=== PATIENT | female | born 1955 | race Caucasian/White ===

== ENCOUNTER 2016-10-31 08:18 | Inpatient (IN) | payer OTHER ==
[2016-10-31] VITALS (18 sets, daily range): BP systolic 88–189; BP diastolic 55–109
[~2016-10-31] VITALS: Ht 157.5 cm; Wt 112.8 kg
--- NOTE | ~2016-10-31 | EKG ---
[address] [address] ELECTROCARDIOGRAM REPORT Name: JESSICA MÉNDEZ Room #: 243- ADM IN M.R.#: [id number] Admission: 10/31/16 Attend Phys: Mickie Quintero MD Discharge: Date of : 57 Report #: [id number] THIS REPORT FOR: //name// [facility] ED Test Date: 2016-10-31 Test Time: 09:11:32 Pat Name: JESSICA MÉNDEZ Department: Room: [facility] Gender: F It Coordinator: BASSAM : 1955 Requested By: Verenice Trevino Order Number: [id number] MD: Deshawn Gr Measurements Intervals [place] Rate: 0 P: 0 [place]: QRS: 0 QRSD: T: QT: QTc: 0 Interpretive Statements All 12 leads are missing Compared to ECG 10/31/2016 08:36:21 Sinus rhythm no longer present Atrial premature complex(es) no longer present Electronically Signed On 10-31-2016 17:02:54 UNIVERSITY INTERN by Deshawn Gr [email or web address] <ELECTRONICALLY SIGNED> By: Deshawn Gr MD 10/31/16 1702 0911 0911 Deshawn Gr MD /ANN
--- NOTE | ~2016-10-31 | HC ---
[facility] [place] [address] CONSULTATION Name: JESSICA MÉNDEZ Room #: 243-P [facility] IN M.R.#: [id number] Admission: 10/31/16 Attend Phys: Mickie Quintero MD Discharge: Date of : 57 Report #: [id number] THIS REPORT FOR: //name// CC: Luisa Phillips Mickie Quintero PRIMARY PHYSICIAN: None. REFERRAL PHYSICIAN: and Mickie Quintero MD REASON FOR REFERRAL: Acute respiratory failure. HISTORY OF PRESENT ILLNESS: The patient is a 61-year-old female who was brought to the emergency room with dyspnea. The patient was found to be unresponsive and she was subsequently intubated. A pulmonary consultation was requested. The patient has multiple medical problems including history of respiratory failure felt to be related to chronic narcotics, COPD and sleep apnea. She was just hospitalized in February 2016, for similar presentation. She required intubation at that time. According to the nursing facility, the patient was found unresponsive this morning during the morning rounds. She was brought to the emergency room. Currently, she is intubated. She is now arousable, follows commands. Otherwise, history is limited as the patient is intubated. PAST MEDICAL HISTORY: As mentioned above including history of apparent COPD/asthma, chronic pain, on chronic narcotics; history of obesity with possible sleep apnea, history of insomnia, major depressive disorder, anxiety disorder, anemia, hypertension, gastroesophageal reflux disease, and diabetes mellitus type 2. PAST SURGICAL HISTORY: Unknown. ALLERGIES: Include ASPIRIN, CODEINE, IODINE and PENICILLIN, reactions not specified. MEDICATIONS: On admission were reviewed, this Include prednisone, oxycodone IR 15 mg q.6 hours p.r.n., Abilify, Xanax 0.5 mg p.o. t.i.d., supplements, Combivent 2 puffs p.r.n., Effexor 75 mg once a day, hydralazine, DuoNeb q.4 hours p.r.n., iron supplements, lisinopril, Norvasc, OxyContin 60 mg p.o. b.i.d., Prilosec, Provigil, senna, and Zoloft. FAMILY HISTORY: Unknown. [address] [address] CONSULTATION Name: JESSICA MÉNDEZ Room #: 243-P [facility] IN ..#: [id number] Admission: 10/31/16 Attend Phys: Mickie Quintero MD Discharge: Date of : 57 Report #: [id number] SOCIAL HISTORY: She resides at a nursing care facility. She has family including a sister who lives in town who looks after her. There is no history of tobacco or alcohol use. REVIEW OF SYSTEMS: Deferred as the patient is intubated. PHYSICAL EXAMINATION: GENERAL: She is now arousable, following commands. VITAL SIGNS: Pulse is 80, respiratory rate is 24, blood pressure 115/67 mmHg, and saturation 94%. HEENT: Normocephalic, atraumatic. She is orally intubated. NECK: Supple without any lymphadenopathy or thyromegaly. CHEST: Breath sounds are clear bilaterally without obvious wheezes or rales. CARDIOVASCULAR: Normal S1, S2. There are no murmurs or gallop. There is no JVD. There is no carotid bruit. Pulses are 2+/4+ bilaterally. ABDOMEN: Moderately obese. GENITOURINARY: Deferred. RECTAL: Deferred. EXTREMITIES: No cyanosis, clubbing, or edema. LABORATORY DATA: Portable chest x-ray post-intubation shows mild cardiomegaly, small lung volumes, mild vascular congestion, questionable right-sided infiltrates, question left lower lobe atelectasis, ET tube is approximately 2.5 cm above the sonia. Electrolytes: Sodium 138, potassium 4.9, chloride 98, CO2 is 34, BUN is 32, creatinine is 1.3. WBC 6900, hemoglobin is 12.8, platelets are normal. Arterial blood gas post-intubation revealed pH 7.28, pCO2 of 67, pO2 400 on FiO2 100%. IMPRESSION: 1. Acute hypercapnic hypoxic respiratory failure in this 61-year-old white female. This is her second episode in the last 6 months. She was felt to be unresponsive. She has chronic pain, requiring chronic narcotics. She has a history of asthma and chronic obstructive pulmonary disease with possible sleep related breathing disorder. Most likely etiology is likely related to hypoventilation, probably related to chronic narcotics. Again, as previously mentioned, sleep related breathing disorder such as sleep apnea, obesity hypoventilation syndrome is suspected along with underlying chronic obstructive pulmonary disease and asthma. 2. Encephalopathy, unresponsive today, much improved, likely related to narcotics. 3. Questionable infiltrates, possible pneumonia. Possible aspiration. 4. History of asthma/chronic obstructive pulmonary disease, again without bronchospasm. We will continue bronchodilators and short course of corticosteroids given respiratory failure. 5. Chronic pain, on chronic narcotics, this appears to be the biggest concern [facility] [address] [place] [address] CONSULTATION Name: JESSICA MÉNDEZ Room #: 243-P [facility] IN M.R.#: [id number] Admission: 10/31/16 Attend Phys: Mickie Quintero MD Discharge: Date of : 57 Report #: [id number] as this is a second episode within the last 6 months with significant pulmonary impairment. Narcotic use may have to be readdressed. 6. History of major depressive disorder/anxiety disorder. 7. History of insomnia with apparent hypersomnia, requiring Provigil. Hypersomnia may be related to narcotics, however. 8. Hypertension. 9. Gastroesophageal reflux disease. 10. Diabetes mellitus type 2. 11. Moderate obesity, sleep disorder should be evaluated once the patient is stable. This will need to be done as an outpatient. RECOMMENDATION: We will continue mechanical ventilation, bronchodilators, and short course of corticosteroids. Broad-spectrum antibiotics will be started. Her chest x-ray shows clearing of the possible infiltrates, antibiotics can be discontinued. She will be weaned from the ventilator once clinically improve. As previously mentioned in February 2016, narcotics use in this patient will need to be addressed. Chronic narcotic is contributing to the patient's respiratory compromise. DVT and GI prophylaxis will be addressed. Thank you for this consultation. <ELECTRONICALLY SIGNED> By: Jose Griffiths MD 10/31/16 1634 1114 1209 Jose Griffiths MD /nt
--- NOTE | ~2016-10-31 | H ---
[facility] [place] [address] HISTORY AND PHYSICAL Name: JESSICA MÉNDEZ Room #: 457-P [facility] IN M.R.#: [id number] Admission: 10/31/16 Attend Phys: Mickie Quintero MD Discharge: 11/04/16 Date of : 57 Report #: [id number] THIS REPORT FOR: //name// CC: Luisa Dubois PRIMARY CARE PHYSICIAN: Luisa Phillips DO. CHIEF COMPLAINT: Shortness of breath and unresponsiveness. HISTORY OF PRESENT ILLNESS: The patient is a 61-year-old female with a history of chronic pain syndrome, on high-dose narcotics; COPD with a history of respiratory failure and intubation in February of last year, who was brought in by EMS secondary to shortness of breath and unresponsiveness. This information was obtained from the ER physician as the patient is currently intubated and sedated. Apparently, the patient was found slumped over on a chair, unresponsive with notable tachypnea. EMS was activated and the patient was intubated. It is uncertain as to whether she has had any recent fever, chills or increasing cough. Chest x-rays are not very definitive, but there is some concern that she may have HCAP as well as COPD exacerbation. There were also initial concerns about volume overload. However, because of her pressures, she was not getting any Lasix. Her BNP is normal. Therefore, I doubt that this is the case. She is now intubated and sedated in the ICU. PAST MEDICAL HISTORY: COPD with chronic respiratory failure and hospitalization in February of last year, at which time, she was intubated; morbid obesity; type 2 diabetes; chronic pain syndrome, on high-dose narcotics; depression; anxiety; iron-deficiency anemia; hypertension; GERD and chronic constipation. PAST SURGICAL HISTORY: She has had a hysterectomy, tonsillectomy and bilateral breast reduction. MEDICATIONS: She is on prednisone, Oxy IR 15 mg p.r.n., Abilify 5 daily, lactobacillus 2 daily, Xanax 0.5 mg t.i.d. p.r.n., Caltrate, Combivent puffs t.i.d. p.r.n., Effexor 150 daily, hydralazine 25 q. 6 hours p.r.n., DuoNebs p.r.n., ferrous sulfate 325 daily, Norvasc 7.5 daily, prednisone 40 daily, OxyContin long-acting 60 b.i.d., omeprazole 40 daily, Provigil 200 daily, Senokot, Tylenol, vitamin D at 50,000 units daily and Zoloft 150 daily. ALLERGIES: ASPIRIN, CODEINE, IODINE and PENICILLIN, reaction unknown. SOCIAL HISTORY: The patient lives in a long-term facility at [facility]. FAMILY HISTORY: Noncontributory. REVIEW OF SYSTEMS: Unobtainable. [address] [address] HISTORY AND PHYSICAL Name: JESSICA MÉNDEZ Room #: 457-P [facility] IN M.R.#: [id number] Admission: 10/31/16 Attend Phys: Mickie Quintero MD Discharge: 11/04/16 Date of : 57 Report #: [id number] PHYSICAL EXAMINATION: VITAL SIGNS: Temperature of 98, pulse 76, blood pressure 115/67 and O2 sat 94% on a ventilator with an FIO2 of 40. GENERAL: She is sedated, but will open her eyes and move all extremities equally and well. HEENT: Normocephalic, atraumatic. ET tube in place. Mucous membranes are dry. CARDIOVASCULAR: Regular rate and rhythm. No murmurs. LUNGS: Clear to auscultation bilaterally. Coarse breath sounds. ABDOMEN: Soft, obese. No distention. No tenderness. EXTREMITIES: No edema. NEUROLOGIC: Nonfocal. LABS AND TESTING: Chest x-ray, per the radiologist's read, is negative for anything acute. U/A was negative. Initial ABG: pH of 7.29, pCO2 of 67, pO2 of 400, lactate 1.19 and FiO2 of 100%. Repeat ABG is currently pending. Sodium 138, potassium 4.9 and BUN and creatinine are 33 and 1.3. CBC showed no significant abnormalities. Creatinine in 02/2016 was 0.7. EKG showed normal sinus rhythm with a rate of 86. ASSESSMENT AND PLAN: 1. Acute respiratory failure, suspect largely chronic obstructive pulmonary disease, may be coupled with her excessive COMPUTER OPERATIONS TECHNICIAN depressants. There may be a component of HCAP as well. I doubt CHF. We will continue aggressive pulmonary toiletry, ventilatory support. Pulmonary is following. She has been started on antibiotics empirically, DuoNebs and Solu-Medrol. We will need to limit her narcotic use. 2. Chronic obstructive pulmonary disease exacerbation. Again treatment as above. Pulmonary is following. She is already on steroids and scheduled DuoNebs. 3. Diabetes. We will continue sliding scale insulin. 4. History of iron-deficiency anemia, overall stable. Continue the same. 5. History of hypertension. She is currently hypotensive from the peripheral fall. We will hold her blood pressure medications. 6. History of major depressive disorder and anxiety. Continue the same. 7. Deep venous thrombosis prophylaxis, on Lovenox. <ELECTRONICALLY SIGNED> By: Mickie Quintero MD 11/25/162009 1207 1326 MD deedee Orozco
--- NOTE | ~2016-10-31 | 2DMMODE ---
[facility] [place] [place] [address] 2 D/M-MODE ECHOCARDIOGRAM Name: DEVHERMAN Room #: 243-P [facility] IN [facility]#: [id number] Admission: 10/31/16 Attend Phys: Mickie Quintero MD Discharge: Date of : 57 Date of Service: 10/31/16 1332 Report #: [id number] THIS REPORT FOR: //name// Transthoracic Echocardiography Ordering physician: Mickie Quintero Referring physician: Luisa Phillips My N. Cow Washer: SANKET Rodrigues Indications/History: Respiratory failure, DM, HTN, COPD, CHF. BP: 98 / 67 HR: 67bpm Height: 62in Weight: 241.5lb Study data: M-mode, complete 2D, complete spectral Doppler, and color Doppler. Location: Bedside. Routine. Image quality was fair. The study was technically limited due to poor acoustic window availability, the tracheostomy, and body habitus. 2D measurements Normal Normal LVID ED 36-57 IVS ED 6-11 LVID ES 23-40 LVPW ED 6-11 LA volume index 16-28 AoRoot diam ED 21-37 LVOT diameter 18-23 Findings: Left ventricle: The cavity size was normal. Wall thickness was normal. Systolic function was normal. Wall motion was normal. Right ventricle: The cavity size was normal. Systolic function was normal. Right atrium: The atrium was normal in size. Left atrium: The atrium was normal in size. Aortic valve: Trileaflet; mildly calcified leaflets. Doppler: There was no stenosis. No regurgitation. Peak velocity: 186.4cm/s (S). Peak gradient: 13.9mm Hg (S). Mitral valve: The valve appears to be grossly normal. [facility] [employer] [address] 2 D/M-MODE ECHOCARDIOGRAM Name: JESSICA MÉNDEZ Room #: 243-P [facility] IN M.R.#: [id number] Admission: 10/31/16 Attend Phys: Mickie Quintero MD Discharge: Date of : 57 Date of Service: 10/31/16 1332 Report #: [id number] Doppler: There was no evidence for stenosis. No regurgitation. Peak E-wave velocity: 82.4cm/s. Peak gradient: 2.7mm Hg (D). Peak A-wave velocity: 115.3cm/s. Tricuspid valve: Structurally normal valve. Doppler: There was no evidence for stenosis. No regurgitation. Pulmonic valve: Structurally normal valve. Doppler: There was no evidence for stenosis. No regurgitation. Pericardium: There was no pericardial effusion. Aorta: Aortic root: The aortic root was normal in size. Pulmonary artery: Pressure could not be reliably determined due to minimal or absent tricuspid insufficiency jet, but pulmonary hypertension was not suggested. Diastolic function: Doppler parameters are consistent with abnormal left ventricular relaxation (grade 1 diastolic dysfunction). Systemic veins: Inferior vena cava: The vessel was normal in size; the respirophasic diameter changes were in the normal range (= 50%). Conclusions Limited echo study. 1. Left ventricle: Systolic function was normal. Wall motion was normal. Doppler parameters are consistent with abnormal left ventricular relaxation (grade 1 diastolic dysfunction). 2. Aortic valve: Trileaflet; mildly calcified leaflets. There was no stenosis. No regurgitation. 3. Mitral valve: The valve appears to be grossly normal. No regurgitation. 4. Pericardium, extracardiac: There was no pericardial effusion. <ELECTRONICALLY SIGNED> By: Jose Rojas MD, [facility] 10/31/16 1527 1332 1527 Jose Rojas MD, [facility] /carolyn
--- NOTE | ~2016-10-31 | EKG ---
[address] [place] [address] ELECTROCARDIOGRAM REPORT Name: JESSICA MÉNDEZ Room #: 243-P ADM IN M.R.#: [id number] Admission: 10/31/16 Attend Phys: Mickie Quintero MD Discharge: Date of : 57 Report #: [id number] THIS REPORT FOR: //name// [facility] ED Test Date: 2016-10-31 Test Time: 08:36:21 Pat Name: JESSICA MÉNDEZ Department: Room: 243 Gender: F Field Marketer: BASSAM : 1955 Requested By: Verenice Trevino Order Number: [id number] MD: Deshawn Gr Measurements Intervals [place] Rate: 86 P: [place]: QRS: 90 QRSD: 101 T: 64 QT: 372 QTc: 445 Interpretive Statements Sinus rhythm with APC's Borderline right axis deviation Low voltage, extremity leads Compared to ECG 03/13/2016 09:06:36 Low QRS voltage now present Sinus tachycardia no longer present Electronically Signed On 10-31-2016 10:46:47 SPECIMEN PREPARATION ASSISTANT by Deshawn Gr [email or web address] <ELECTRONICALLY SIGNED> By: Deshawn Gr MD 10/31/16 1046 0836 5 MD LOUIS Murillo
[~2016-10-31 08:18] MED LIST: ABILIFY 5 MG TAB5 M1 PO; ACIDOPHILUS1 EAC4 PO; CALCIUM 600 +1 EAC1 PO; COMBIVENT INH; DUONEB 2.5-0.5 M3 ML INH; HYDRALAZINE 2525 MG PO; IRON325 PO; NORVASC5 MG PO; OXYCODONE HCL15 MG PO; OXYCONTIN60 MG PO; PREDNISONE 10 M10 MG PO; PRILOSEC 20 MG20 MG PO; PRINIVIL20 MG PO; PROVIGIL 200 M200 M1 PO; SENNA8.6 MG PO; TYLENOL325 MG PO; VENLAFAXIN75 MG/1 T2 PO; VITAMIN D 5050000 I1 PO; XANAX 0.5 MG0.5 MG PO; ZOLOFT50 MG PO
[2016-10-31 08:59] LABS: ABSOLUTE NEUTROPHILS 3.7 thou/uL (1.4-8.2); BASOPHILS 0.4 % (0.0-2.0); EOSINOPHILS 1.2 % (0.0-3.0); HEMATOCRIT 40.9 % (37.0-47.0); HEMOGLOBIN 12.8 gm/dL (12.0-15.0); LYMPHOCYTES 34.6 % (24.0-44.0); MCH 24.8 pg (26.0-34.0); MCHC 31.2 % (28.0-37.0); MCV 79.3 fL (80.0-100.0); MONOCYTES 9.9 % (1.0-8.0); PLATELET COUNT 184 thou/uL (150-400); POLYS 53.9 % (36.0-66.0); RBC 5.15 mil/uL (4.20-5.00); RDW 15.2 % (10.5-14.5); WBC 6.8 thou/uL (4.0-11.0)
[2016-10-31 09:00] LABS: URINE BILIRUBIN NEGATIVE (Negative); URINE BLOOD TRACE (Negative); URINE COLOR YELLOW; URINE GLUCOSE-RANDOM* NEGATIVE (Negative); URINE KETONES NEGATIVE (Negative); URINE NITRITE NEGATIVE (Negative); URINE PROTEIN (DIPSTICK) 2+ (Negative); URINE SPECIFIC GRAVITY >= 1.030 (1.003-1.035); URINE UROBILINOGEN 0.2 E.U./dl (0.2-1.0)
[2016-10-31 09:02] LABS: MANUAL DIFF NO
[2016-10-31 09:07] LABS: CALCIUM 8.7 mg/dL (8.5-10.1); CREATININE 1.3 mg/dL (0.6-1.3); POTASSIUM 4.9 mmol/L (3.5-5.1)
[2016-10-31 09:11] LABS: ABG SAMPLE TYPE ARTERIAL; BE(vivo) 3.3 mmol/L (-2 to +3); HCO3 31.6 mmol/L (22.0-26.0); LACTATE 1.19 mmol/L (0.5-2.0); O2(CT) 17.7 mL/dL (15.0-23.0); O2Hb 98.7 % (92.0-98.0); PO2 400.9 mmHg (80.0-100.0); sO2 99.8 % (92.0-98.0); tCO2 33.6 mmol/L (24.0-30.0)
[2016-10-31 09:12] LABS: PCO2 67.3 mmHg (35.0-45.0); STICK SITE L.RADIAL; TIDAL VOLUME 400 ml; pH 7.289 (7.360-7.450)
[2016-10-31 09:13] LABS: CASTS None Seen /LPF (None Seen); SQUAMOUS >10 Many /LPF (0-3); URINE RBC 0-2 Rare /HPF (0-2); URINE WBC 0-5 Rare /HPF (0-5)
[2016-10-31 09:14] LABS: CRYSTALS None Seen /LPF (None Seen); WBC CLUMPS Occasional (None Seen)
[2016-10-31 12:11] LABS: TROPONIN-I < 0.04 ng/mL (<0.04-0.07)
[2016-10-31 15:12] LABS: TROPONIN-I 0.21 ng/mL (<0.04-0.07)
[2016-10-31 20:18] LABS: TROPONIN-I 0.21 ng/mL (<0.04-0.07)
[2016-11-01] VITALS (23 sets, daily range): BP systolic 106–156; BP diastolic 51–85
[2016-11-01 04:25] LABS: HEMATOCRIT 30.9 % (37.0-47.0); MCH 24.9 pg (26.0-34.0); MCV 77.9 fL (80.0-100.0); RBC 3.97 mil/uL (4.20-5.00); RDW 14.5 % (10.5-14.5)
[2016-11-01 04:46] LABS: CALCIUM 7.6 mg/dL (8.5-10.1); CREATININE 0.8 mg/dL (0.6-1.3); HEMOGLOBIN 9.9 gm/dL (12.0-15.0); PLATELET COUNT 100 thou/uL (150-400); POTASSIUM 4.2 mmol/L (3.5-5.1)
[2016-11-01 04:49] LABS: MANUAL DIFF YES
[2016-11-01 09:35] LABS: ABSOLUTE NEUTROPHILS 1.6 thou/uL (1.4-8.2); HYPOCHROMASIA SLIGHT; TOTAL CELL COUNT 100
[2016-11-01 11:26] LABS: ABG SAMPLE TYPE ARTERIAL; BE(vivo) 1.2 mmol/L (-2 to +3); HCO3 26.5 mmol/L (22.0-26.0); LACTATE 0.83 mmol/L (0.5-2.0); O2(CT) 15.7 mL/dL (15.0-23.0); O2Hb 96.7 % (92.0-98.0); PO2 104.8 mmHg (80.0-100.0); Pressure Support 8 cm H20; STICK SITE R.BRACHIAL; pH 7.388 (7.360-7.450); sO2 97.7 % (92.0-98.0); tCO2 27.9 mmol/L (24.0-30.0)
[2016-11-01 11:27] LABS: ABG COMMENT C-PAP
[2016-11-02] VITALS (19 sets, daily range): BP systolic 97–161; BP diastolic 47–90
[2016-11-02 05:18] LABS: HEMATOCRIT 32.5 % (37.0-47.0); HEMOGLOBIN 10.4 gm/dL (12.0-15.0); MCH 24.8 pg (26.0-34.0); MCV 77.5 fL (80.0-100.0); RBC 4.19 mil/uL (4.20-5.00); RDW 14.4 % (10.5-14.5); WBC 3.5 thou/uL (4.0-11.0)
[2016-11-02 05:30] LABS: CALCIUM 7.9 mg/dL (8.5-10.1); CREATININE 0.6 mg/dL (0.6-1.3); POTASSIUM 4.7 mmol/L (3.5-5.1)
[2016-11-02 10:10] LABS: % SATURATION 19 % (15-55); IRON 47 ug/dL (27-159); TIBC 254 ug/dL (250-450); UIBC 207 ug/dL (131-425)
[2016-11-03 05:02] VITALS: BP 142/64
[2016-11-03 06:46] LABS: HEMATOCRIT 35.3 % (37.0-47.0); MCH 24.5 pg (26.0-34.0); MCHC 31.1 % (28.0-37.0); MCV 78.8 fL (80.0-100.0); RBC 4.48 mil/uL (4.20-5.00); RDW 14.3 % (10.5-14.5); WBC 4.3 thou/uL (4.0-11.0)
[2016-11-03 07:12] LABS: CALCIUM 8.7 mg/dL (8.5-10.1); CREATININE 0.7 mg/dL (0.6-1.3); POTASSIUM 4.2 mmol/L (3.5-5.1)
[2016-11-03 08:25] VITALS: BP 160/68
[2016-11-03] MEDS ORDERED: PREDNISONE 10 M10 MG PO (14:06)
[2016-11-03] MEDS ORDERED: OXYCONTIN40 MG PO (14:06)
[2016-11-03] MEDS ORDERED: OXYCODONE HCL 55 MG PO (14:06)
[2016-11-03 20:12] VITALS: BP 134/95
[2016-11-04 03:34] VITALS: BP 163/99
[2016-11-04 11:47] VITALS: BP 155/78
[2016-11-04 16:00] VITALS: BP 188/96
[2016-11-19] MEDS ORDERED: LEVEMIR SUBQ (18:47)
[2016-11-19] MEDS ORDERED: LISINOPRIL20 MG PO (18:49)
[2016-11-19] MEDS ORDERED: PROVIGIL 200 M200 M1 PO (22:52)
[2016-11-19] MEDS ORDERED: TUMS PO (22:54)
[2016-11-19] MEDS ORDERED: BIOFREEZE118 ML TOP (22:59)
[2016-11-19] MEDS ORDERED: NOVOLOG100 UNIT/1 SUBQ (23:01)
[2016-11-19] MEDS ORDERED: DULCOLAX5 MG PO (23:14)
[2016-11-28] MEDS ORDERED: FENTANYL 1100 MCG/HR TRANSDERM (08:36)
[2016-11-28] MEDS ORDERED: OXYCONTIN20 M1 PO (08:36)
[2016-11-28] MEDS ORDERED: OXYCODONE HCL 55 MG PO (08:36)
[2016-11-28] MEDS ORDERED: HUMALOG100 UNIT/1 SUBQ (08:42)
[2016-11-28] MEDS ORDERED: PREDNISONE 10 M10 MG PO (08:43)
[2016-12-09] MEDS ORDERED: LOPERAMIDE2 MG PO (22:56)
== END 2016-11-04 19:00 | DRG 208 ==
LOC: ER 08:18 → 4W 09:20 → EROBS 09:20 → ICU 09:45 → 4W 11-02 17:22
PROVIDERS: Emergency Medicine; Family Medicine; Internal Medicine Pulmonary Disease
PROC: 5A1945Z Respiratory Ventilation, 24-96 Consecutive Hours (ICD-10-PCS; principal; 2016-10-31)
PROC: 02HV33Z Insertion of Infusion Device into Superior Vena Cava, Percutaneous Approach (ICD-10-PCS; 2016-10-31)
PROC: B548ZZA Ultrasonography of Superior Vena Cava, Guidance (ICD-10-PCS; 2016-10-31)
DX: J18.9 Pneumonia, unspecified organism (principal); J96.21 Acute and chronic respiratory failure with hypoxia; G92 Toxic encephalopathy; J96.22 Acute and chronic respiratory failure with hypercapnia; J44.1 Chronic obstructive pulmonary disease with (acute) exacerbation; F11.20 Opioid dependence, uncomplicated; Z68.42 Body mass index [BMI] 45.0-49.9, adult; F32.9 Major depressive disorder, single episode, unspecified; F41.9 Anxiety disorder, unspecified; K21.9 Gastro-esophageal reflux disease without esophagitis; I11.0 Hypertensive heart disease with heart failure; K59.09 Other constipation; G47.00 Insomnia, unspecified; G47.10 Hypersomnia, unspecified; E11.9 Type 2 diabetes mellitus without complications; J45.909 Unspecified asthma, uncomplicated; M19.90 Unspecified osteoarthritis, unspecified site; G89.4 Chronic pain syndrome; I50.9 Heart failure, unspecified; G47.30 Sleep apnea, unspecified; E66.01 Morbid (severe) obesity due to excess calories; Z88.0 Allergy status to penicillin; Z90.710 Acquired absence of both cervix and uterus; Z88.6 Allergy status to analgesic agent; Z91.041 Radiographic dye allergy status
CPT/HCPCS: 10045; 10078; 27000

== ENCOUNTER 2017-01-02 20:46 | Inpatient (IN) | payer OTHER ==
[~2017-01-02] VITALS: Ht 162.6 cm; Wt 111.1 kg
--- NOTE | ~2017-01-02 | EKG ---
[address] [address] ELECTROCARDIOGRAM REPORT Name: JESSICA MÉNDEZ Room #: 461-P ADM IN M.R.#: [id number] Admission: 01/02/17 Attend Phys: Rogelio Balderas MD, FAAF Discharge: Date of : 57 Report #: [id number] THIS REPORT FOR: //name// [facility] Test Date: 2017-01-05 Test Time: 02:22:19 Pat Name: JESSICA MÉNDEZ Department: Room: 461 Gender: F Tax Compliance Officer: jorge luis cerrato : 1955 Requested By: Santiago Lion Order Number: [id number] MD: Jose Rojas Measurements Intervals [place] Rate: 64 P: 11 IN: 115 QRS: 79 QRSD: 92 T: 59 QT: 401 QTc: 414 Interpretive Statements Sinus rhythm Borderline short IN interval Compared to ECG 01/02/2017 20:50:34 Atrial premature complex(es) no longer present Electronically Signed On 01-05-2017 9:19:13 CDT by Jose Rojas [email or web address] <ELECTRONICALLY SIGNED> By: Jose Rojas MD, [facility] 01/05/17918 1 1 Jose Rojas MD, [facility] /EPI
--- NOTE | ~2017-01-02 | H ---
[facility] [place] [address] HISTORY AND PHYSICAL Name: JESSICA MÉNDEZ Room #: 461-P ADM IN M.R.#: [id number] Admission: 01/02/17 Attend Phys: Rogelio Balderas MD, FAAF Discharge: Date of : 57 Report #: [id number] THIS REPORT FOR: //name// CC: Rogelio Balderas MD [facility] DATE OF SERVICE: 01/03/2017 HISTORY OF PRESENT ILLNESS: This 61-year-old female is admitted with progressive shortness of breath and hypoxemia. The patient lives in an extended care facility in [place], [place], for the past 2 days her O2 sats have dropped to 80% and she became more somnolent and dyspneic. Her past history is significant for several admissions here recently for respiratory failure and exacerbation of chronic obstructive pulmonary disease, type 2 diabetes, chronic pain, iron deficiency anemia, hypertension, gastroesophageal reflux, diabetes mellitus with neuropathy, degenerative arthritis, opioid dependence, hysterectomy, tonsillectomy, bilateral breast reduction. Previous episodes of congestive heart failure, CO2 narcosis and pneumonia. MEDICATIONS: On admission, sliding scale insulin, OxyContin 40 mg b.i.d., ferrous sulfate 325 mg b.i.d., amlodipine 7.5 mg daily, DuoNeb treatments q.i.d. as needed, modafinil 200 mg daily, lisinopril 20 mg daily, sertraline 150 mg daily, Abilify 5 mg nightly, alprazolam 0.5 mg t.i.d. p.r.n. anxiety, calcium with vitamin D 1 daily. ALLERGIES: PENICILLIN, IODINE, CODEINE, AND ASPIRIN. REVIEW OF SYSTEMS: The patient states she does not walk. She does says she likes living at the facility in [place], the food is good and she is not complaining. When she left here previously, she was very worried about going to the facility in [place]. She currently complains of pain in her legs. PHYSICAL EXAMINATION: GENERAL: An overweight, but responsive black female. VITAL SIGNS: Blood pressure 141/91, pulse 79, respiration 20, temperature afebrile. HEAD: No rash or trauma. BiPAP mask is on. EARS, NOSE AND THROAT: No lesions on her tongue. NECK: Supple. LUNGS: Cough is dry. Lungs have decreased breath sounds. HEART: Rhythm is regular without definite gallop. ABDOMEN: Obese but soft and nontender. EXTREMITIES: No peripheral edema. She has multiple ecchymoses on her arms. NEUROLOGIC: She knows her age, but does not know the month or the year. She has sensory deficit in her feet. There are no lateralized deficit. She moves [address] [address] HISTORY AND PHYSICAL Name: JESSICA MÉNDEZ E Room #: 461-P ADM IN M.R.#: [id number] Admission: 01/02/17 Attend Phys: Rogelio Balderas MD, FAAF Discharge: Date of : 57 Report #: [id number] all extremities. LABORATORY DATA: Chest x-ray shows vascular congestion and a left lower lobe infiltrate. Hemoglobin 11 grams, white cell count 5700. Sodium 142, potassium 4.0, CO2 39, BUN 27, creatinine 1.0, estimated GFR 57. Blood sugar high 277, calcium 8.4. Troponin normal. Blood gases in the Emergency Room revealed pH 7.37, pCO2 of 66, pO2 129 on 50% FIO2. ASSESSMENT: 1. Respiratory failure, chronic hypercapnia. 2. Probable healthcare-associated pneumonia. 3. Pulmonary vascular congestion, probably diastolic congestive heart failure from pneumonia. 4. Diabetes mellitus type 2 with neuropathy. 5. Hypertension. 6. Obese. 7. Chronic pain syndrome with chronic opioid dependence. 8. Gastroesophageal reflux. PLAN: Broad spectrum antibiotics, bronchodilators, managed to control blood sugars, attempt to wean off BiPAP. Pulmonary to see, attempt to get sputum sample for culture. Control pain. PROGNOSIS: Guarded. The patient did tell in the Emergency Room physician that she would not allow intubation; however, is still full code, otherwise. <ELECTRONICALLY SIGNED> By: Santiago Lion DO 01/04/17 0843 0730 0810 Santiago Lion DO /nt
--- NOTE | ~2017-01-02 | EKG ---
[address] [address] ELECTROCARDIOGRAM REPORT Name: JESSICA MÉNDEZ Room #: 461-P ADM IN M.R.#: [id number] Admission: 01/02/17 Attend Phys: Rogelio Balderas MD, FAAF Discharge: Date of : 57 Report #: [id number] THIS REPORT FOR: //name// [facility] ED Test Date: 2017-01-02 Test Time: 20:50:34 Pat Name: JESSICA MÉNDEZ Department: Room: 461 Gender: F Money Order Clerk: HIRAM : 1955 Requested By: Tammy Pickett Order Number: [id number] MD: Jose Rojas Measurements Intervals [place] Rate: 85 P: 31 IN: 103 QRS: 47 QRSD: 97 T: 38 QT: 375 QTc: 446 Interpretive Statements Sinus rhythm Atrial premature complexes Short IN interval Compared to ECG 12/09/2016 19:29:47 Atrial premature complex(es) now present Electronically Signed On 01-04-2017 15:13:02 CDT by Jose Rojas [email or web address] <ELECTRONICALLY SIGNED> By: Jose Rojas MD, [facility] 01/04/17 1513 49 49 Jose Rojas MD, [facility] /EPI
--- NOTE | ~2017-01-02 | HC ---
[facility] [place] [address] CONSULTATION Name: JESSICA MÉNDEZ Room #: 461-P ADM IN M.R.#: [id number] Admission: 01/02/17 Attend Phys: Rogelio Balderas MD, FAAF Discharge: Date of : 57 Report #: [id number] THIS REPORT FOR: //name// CC: Santiago Jeffery Luisa Phillips DATE OF SERVICE: 01/03/2017 REFERRING PROVIDER: Santiago Lion DO REASON FOR CONSULTATION: Respiratory failure. CHIEF COMPLAINT: Shortness of breath. HISTORY OF PRESENT ILLNESS: Our group was asked to see the patient in consultation while hospitalized at [facility]. The patient is known to our service after multiple admissions for hypercapnic respiratory failure, sometimes associated with pain medicines use, presented to the emergency department yesterday evening with increasing shortness of breath over the past few days, no significant cough, congestion or wheezing. The patient is unable to give any history to me as she is very somnolent, but no fevers, chills or sweats. The patient was started on noninvasive positive pressure ventilation with BiPAP yesterday evening and remains so today. Chest x-ray suggested some mild infiltrates. She remains on therapy for respiratory failure including BiPAP, bronchodilators, and antibiotics as well as systemic steroids. ALLERGIES: Include PENICILLIN, ASPIRIN, CODEINE and IODINE. PAST MEDICAL HISTORY: 1. History of depression. 2. Anxiety. 3. Chronic pain. 4. Chronic obstructive pulmonary disease. 5. Constipation. 6. Chronic respiratory failure. 7. Diabetes mellitus type 2. 8. Hypertension. PAST SURGICAL HISTORY: Includes hysterectomy and breast reduction. CURRENT INPATIENT MEDICATIONS: Include Protonix, aripiprazole, modafinil, calcium carbonate, Zoloft, lisinopril, amlodipine, alprazolam, acetaminophen, insulin sliding scale, DuoNebs, meropenem, and methylprednisolone. SOCIAL HISTORY: Unable to obtain due to current neurologic status. [facility] [address] [place] [address] CONSULTATION Name: JESSICA MÉNDEZ Room #: 461-P [facility] IN ..#: [id number] Admission: 01/02/17 Attend Phys: Rogelio Balderas MD, FAAF Discharge: Date of : 57 Report #: [id number] FAMILY HISTORY: Unobtainable due to current neurologic status. REVIEW OF SYSTEMS: Otherwise, unobtainable due to current neurologic status. PHYSICAL EXAMINATION: VITAL SIGNS: Afebrile, pulse 70s, respiratory rate 20, blood pressure 125/65. GENERAL: This is an obese, middle-aged woman, does not appear in any distress, resting comfortably on BiPAP. ENT: Unable to assess. NECK: Supple, no lymphadenopathy. LUNGS: Diminished but clear. No wheezes or crackles. CARDIOVASCULAR: Heart regular. No murmurs or gallops. ABDOMEN: Soft, nontender, no masses. EXTREMITIES: With 1+ edema. LABORATORY DATA: White blood cell count 6000, hemoglobin 11, hematocrit 35, platelet count 119. Sodium 142, potassium 4.0, chloride 101, bicarbonate 39, BUN 27, creatinine 1.0. Glucose 277. Arterial blood gas on BiPAP 03/04 reveals pH of 7.40, pCO2 of 62, pO2 of 69, bicarbonate of 38. IMPRESSION: 1. Acute on chronic hypoxemic and hypercapnic respiratory failure, better, likely multifactorial. 2. Lower lobe infiltrate consistent with pneumonia, possibly aspiration. 3. Morbid obesity. 4. Obstructive sleep apnea. 5. Chronic pain. 6. Diabetes mellitus type 2. SUGGESTIONS: 1. Continue on BiPAP until the patient more alert, likely we will take a break this evening when her evening meal and then where again overnight. 2. Continue with meropenem. 3. Await cultures. 4. Continue with bronchodilators. 5. Taper steroids. 6. Follow up chest radiograph in the a.m. 7. Additional recommendations to follow. Thank you for requesting our suggestions. <ELECTRONICALLY SIGNED> By: Rl Woods MD 01/06/17 [id number] [id number] Rl Woods MD /nt
[~2017-01-02 20:46] MED LIST changes: +BIOFREEZE118 ML TOP; +DULCOLAX5 MG PO; +FENTANYL 1100 MCG/HR TRANSDERM; +HUMALOG100 UNIT/1 SUBQ; +LEVEMIR SUBQ; +LISINOPRIL20 MG PO; +LOPERAMIDE2 MG PO; +NOVOLOG100 UNIT/1 SUBQ; +OXYCODONE HCL 55 MG PO; +OXYCONTIN20 M1 PO; +OXYCONTIN40 MG PO; +TUMS PO
[2017-01-02 22:09] LABS: ABSOLUTE NEUTROPHILS 4.1 thou/uL (1.4-8.2); BASOPHILS 0.3 % (0.0-2.0); EOSINOPHILS 1.6 % (0.0-3.0); HEMOGLOBIN 11.1 gm/dL (12.0-15.0); LYMPHOCYTES 19.7 % (24.0-44.0); MCH 25.2 pg (26.0-34.0); MCHC 31.8 g/dL (28.0-37.0); MCV 79.3 fL (80.0-100.0); MONOCYTES 5.6 % (1.0-8.0); PLATELET COUNT 119 thou/uL (150-400); POLYS 72.8 % (36.0-66.0); RBC 4.41 mil/uL (4.20-5.00); RDW 15.9 % (10.5-14.5); WBC 5.7 thou/uL (4.0-11.0)
[2017-01-02 22:10] LABS: MANUAL DIFF NO
[2017-01-02 22:19] LABS: ANION GAP 1 mmol/L (7-16); BUN 26 mg/dL (7-18); CALCIUM 8.7 mg/dL (8.5-10.1); CHLORIDE 102 mmol/L (98-107); CO2 40 mmol/L (21-32); GLUCOSE 141 mg/dL (70-99); POTASSIUM 3.6 mmol/L (3.5-5.1); SODIUM 143 mmol/L (136-145)
[2017-01-02 22:30] LABS: ALBUMIN 2.9 g/dL (3.4-5.0); ALKALINE PHOSPHATASE 68 U/L (46-116); NT-PRO BRAIN NAT PEPTIDE 328 pg/mL (<300); SGOT 16 U/L (15-37); SGPT 25 U/L (30-65); TOTAL BILIRUBIN 0.4 mg/dL (<0.1-1.0); TOTAL PROTEIN 6.7 g/dL (6.4-8.2); TROPONIN-I < 0.04 ng/mL (<0.04-0.07)
[2017-01-02 23:16] LABS: ABG SAMPLE TYPE ARTERIAL; BE(vivo) 10.1 mmol/L (-2 to +3); HCO3 37.6 mmol/L (22.0-26.0); LACTATE 0.79 mmol/L (0.5-2.0); O2(CT) 16.4 mL/dL (15.0-23.0); O2Hb 97.5 % (92.0-98.0); PCO2 66.5 mmHg (35.0-45.0); PO2 129.8 mmHg (80.0-100.0); STICK SITE R.RADIAL; sO2 98.4 % (92.0-98.0); tCO2 39.6 mmol/L (24.0-30.0)
[2017-01-02 23:17] LABS: Pressure Support 14 cm H20
[2017-01-03 00:05] VITALS: BP 115/52
[2017-01-03 04:31] LABS: ANION GAP 2 mmol/L (7-16); BUN 27 mg/dL (7-18); CALCIUM 8.4 mg/dL (8.5-10.1); CHLORIDE 101 mmol/L (98-107); CO2 39 mmol/L (21-32); GLUCOSE 277 mg/dL (70-99); SODIUM 142 mmol/L (136-145); TROPONIN-I < 0.04 ng/mL (<0.04-0.07)
[2017-01-03 04:40] VITALS: BP 141/91
[2017-01-03 08:30] VITALS: BP 135/79
[2017-01-03 10:56] LABS: ABG SAMPLE TYPE ARTERIAL; BE(vivo) 10.8 mmol/L (-2 to +3); HCO3 38.1 mmol/L (22.0-26.0); LACTATE 1.26 mmol/L (0.5-2.0); O2Hb 92.7 % (92.0-98.0); PCO2 62.4 mmHg (35.0-45.0); PO2 69.3 mmHg (80.0-100.0); STICK SITE R.RADIAL; pH 7.404 (7.360-7.450); sO2 93.5 % (92.0-98.0); tCO2 40.1 mmol/L (24.0-30.0)
[2017-01-03 10:57] LABS: Pressure Support 16 cm H20; VDS BIPAP SPONT TIMED cc
[2017-01-03 12:32] VITALS: BP 125/65
[2017-01-03 16:13] VITALS: BP 156/61
[2017-01-03 20:06] VITALS: BP 143/73
[2017-01-04 02:38] VITALS: BP 130/67
[2017-01-04 06:08] LABS: BASOPHILS 0.1 % (0.0-2.0); EOSINOPHILS 0.1 % (0.0-3.0); HEMATOCRIT 30.9 % (37.0-47.0); LYMPHOCYTES 10.8 % (24.0-44.0); MCH 25.3 pg (26.0-34.0); MCHC 32.5 g/dL (28.0-37.0); MONOCYTES 2.7 % (1.0-8.0); PLATELET COUNT 102 thou/uL (150-400); POLYS 86.3 % (36.0-66.0); RBC 3.96 mil/uL (4.20-5.00); RDW 15.6 % (10.5-14.5); WBC 3.5 thou/uL (4.0-11.0)
[2017-01-04 06:11] LABS: MANUAL DIFF NO
[2017-01-04 06:16] LABS: ANION GAP < 0 mmol/L (7-16); BUN 32 mg/dL (7-18); CALCIUM 8.6 mg/dL (8.5-10.1); CHLORIDE 100 mmol/L (98-107); CO2 39 mmol/L (21-32); CREATININE 0.8 mg/dL (0.6-1.3); GLUCOSE 322 mg/dL (70-99); POTASSIUM 4.2 mmol/L (3.5-5.1); SODIUM 138 mmol/L (136-145)
[2017-01-04 08:42] VITALS: BP 152/74
[2017-01-04 12:00] VITALS: BP 149/79
[2017-01-04 16:23] VITALS: BP 141/64
[2017-01-04 20:00] VITALS: BP 151/88
[2017-01-05 02:46] LABS: ANION GAP < 0 mmol/L (7-16); BUN 31 mg/dL (7-18); CALCIUM 8.5 mg/dL (8.5-10.1); CHLORIDE 100 mmol/L (98-107); CO2 37 mmol/L (21-32); CREATININE 0.9 mg/dL (0.6-1.3); GLUCOSE 281 mg/dL (70-99); POTASSIUM 4.2 mmol/L (3.5-5.1); SODIUM 136 mmol/L (136-145)
[2017-01-05 02:53] LABS: ALBUMIN 2.6 g/dL (3.4-5.0); ALKALINE PHOSPHATASE 69 U/L (46-116); SGOT 13 U/L (15-37); SGPT 22 U/L (30-65); TOTAL BILIRUBIN 0.2 mg/dL (<0.1-1.0); TOTAL PROTEIN 5.9 g/dL (6.4-8.2); TROPONIN-I < 0.04 ng/mL (<0.04-0.07)
[2017-01-05 04:00] VITALS: BP 147/97
[2017-01-05 08:09] VITALS: BP 155/77
[2017-01-05 11:39] VITALS: BP 132/65
[2017-01-05 15:54] VITALS: BP 135/65
[2017-01-05 19:57] VITALS: BP 148/84
[2017-01-06 03:44] VITALS: BP 153/81
[2017-01-06 07:39] VITALS: BP 148/89
[2017-01-06 11:27] VITALS: BP 142/68
[2017-01-06 16:10] VITALS: BP 131/74
[2017-01-06 20:16] VITALS: BP 122/58
[2017-01-07 04:00] VITALS: BP 160/75
[2017-01-07 06:42] LABS: HEMATOCRIT 36.1 % (37.0-47.0); HEMOGLOBIN 11.5 gm/dL (12.0-15.0); MCH 25.2 pg (26.0-34.0); MCHC 31.9 g/dL (28.0-37.0); MCV 78.9 fL (80.0-100.0); RBC 4.57 mil/uL (4.20-5.00); RDW 15.6 % (10.5-14.5); WBC 6.6 thou/uL (4.0-11.0)
[2017-01-07 07:12] LABS: CALCIUM 8.6 mg/dL (8.5-10.1); CREATININE 0.8 mg/dL (0.6-1.3); POTASSIUM 4.1 mmol/L (3.5-5.1)
[2017-01-07 07:20] LABS: ABG SAMPLE TYPE ARTERIAL; BE(vivo) 10.1 mmol/L (-2 to +3); HCO3 37.8 mmol/L (22.0-26.0); LACTATE 1.07 mmol/L (0.5-2.0); O2(CT) 16.4 mL/dL (15.0-23.0); O2Hb 96.4 % (92.0-98.0); PO2 105.2 mmHg (80.0-100.0); pH 7.365 (7.360-7.450); sO2 97.5 % (92.0-98.0); tCO2 39.9 mmol/L (24.0-30.0)
[2017-01-07 07:21] LABS: FIO2 35 %; PCO2 67.7 mmHg (35.0-45.0); STICK SITE R.RADIAL
[2017-01-07 07:22] LABS: ABG COMMENT BIPAP 15/6 35% RR16; Pressure Support 9 cm H20
[2017-01-07 08:00] VITALS: BP 136/63
[2017-01-07 12:00] VITALS: BP 154/61
[2017-01-07 16:29] VITALS: BP 151/89
[2017-01-07 20:00] VITALS: BP 140/84
[2017-01-08 04:00] VITALS: BP 134/72
[2017-01-08 08:00] VITALS: BP 138/74
[2017-01-08 12:00] VITALS: BP 123/57
== END 2017-01-08 17:39 | DRG 193 ==
LOC: ER 20:46 → EROBS 23:49 → 4W 23:49
PROVIDERS: Emergency Medicine; Internal Medicine; Internal Medicine Pulmonary Disease
PROC: 5A09357 Assistance with Respiratory Ventilation, Less than 24 Consecutive Hours, Continuous Positive Airway Pressure (ICD-10-PCS; principal; 2017-01-03)
DX: J18.9 Pneumonia, unspecified organism (principal); J96.22 Acute and chronic respiratory failure with hypercapnia; J96.21 Acute and chronic respiratory failure with hypoxia; F11.20 Opioid dependence, uncomplicated; J44.1 Chronic obstructive pulmonary disease with (acute) exacerbation; J44.0 Chronic obstructive pulmonary disease with (acute) lower respiratory infection; Z68.41 Body mass index [BMI] 40.0-44.9, adult; F32.9 Major depressive disorder, single episode, unspecified; F41.9 Anxiety disorder, unspecified; I10 Essential (primary) hypertension; K21.9 Gastro-esophageal reflux disease without esophagitis; K59.00 Constipation, unspecified; M19.90 Unspecified osteoarthritis, unspecified site; G89.4 Chronic pain syndrome; E66.01 Morbid (severe) obesity due to excess calories; G47.33 Obstructive sleep apnea (adult) (pediatric); E11.40 Type 2 diabetes mellitus with diabetic neuropathy, unspecified; Z79.899 Other long term (current) drug therapy; Z90.710 Acquired absence of both cervix and uterus; Z88.0 Allergy status to penicillin; Z88.6 Allergy status to analgesic agent; Z91.041 Radiographic dye allergy status; Z87.891 Personal history of nicotine dependence; Z99.81 Dependence on supplemental oxygen; Z79.52 Long term (current) use of systemic steroids
CPT/HCPCS: 10045

== ENCOUNTER 2017-03-19 11:48 | Inpatient (IN) | payer OTHER ==
[2017-03-19] VITALS (7 sets, daily range): BP systolic 117–151; BP diastolic 69–110
[~2017-03-19] VITALS: Ht 157.5 cm; Wt 105.8 kg
--- NOTE | ~2017-03-19 | HC ---
[facility] [place] [address] CONSULTATION Name: JESSICA MÉNDEZ Room #: 462-P [facility] IN M.R.#: [id number] Admission: 03/19/17 Attend Phys: Aleksandra Canales Discharge: Date of : 57 Report #: [id number] THIS REPORT FOR: //name// CC: FAM physician/PCP Aleksandra Canales DATE OF SERVICE: 03/19/2017 PRIMARY CARE PHYSICIAN: Dr. Rogelio Balderas. REFERRING PHYSICIAN: Dr. Aleksandra Canales. REASON FOR REFERRAL: Acute on chronic respiratory failure. HISTORY OF PRESENT ILLNESS: The patient is a 61-year-old white female who presents to the Emergency Room with altered mental status. She is known to this physician with past history of chronic respiratory failure, RODRÍGUEZ and obesity hypoventilation syndrome. A pulmonary consultation was requested. The patient resides at [place], [place]. Earlier today, she was found to be confused with fever of 101 degrees Fahrenheit. She was felt to have urinary tract infection. When she was seen in the ER, the patient was hypoxic, hypercapnic. She was placed on noninvasive positive pressure ventilation. With altered mental status that was waxing and waning, Dr. Fowler elected to intubate the patient. However, when she was about to intubate the patient, the patient refused. The patient was placed back on a BiPAP and transferred to the ICU. At present, she is arousable, but does fall sick quite easily. She understands that if she deteriorates, she may not survive this. Otherwise, history is limited as the patient is on a noninvasive positive pressure as the patient is on BiPAP. PAST MEDICAL HISTORY: Notable for chronic hypoxic hypercapnic respiratory failure, history of COPD, RODRÍGUEZ with probable obesity, hypoventilation syndrome, morbid obesity, chronic pain on chronic narcotics, depression, anxiety disorder, hypertension, gastroesophageal reflux disease, diabetes mellitus type 2. PAST SURGICAL HISTORY: Unknown. ALLERGIES: Depression. PAST SURGICAL HISTORY: Includes hysterectomy, bilateral breast reduction, tonsillectomy, adenoidectomy. [address] [address] CONSULTATION Name: JESSICA MÉNDEZ Room #: 462-P ADM IN M.R.#: [id number] Admission: 03/19/17 Attend Phys: Aleksandra Canales Discharge: Date of : 57 Report #: [id number] ALLERGIES: ASPIRIN, which causes throat to swell, CODEINE, reactions unspecified, IODINE and PENICILLIN, reactions unspecified. MEDICATIONS: From a nursing facility include Combivent 2 puffs t.i.d., DuoNeb q. 4 hours p.r.n., Prilosec, Zestril, Neurontin, Tums, Levemir, hydralazine, Norvasc, Provigil, senna, Zoloft. Additional medication should be OxyContin 40 mg p.o. b.i.d. FAMILY HISTORY: Unknown. SOCIAL HISTORY: The patient currently resides at the nursing facility. She has family, a sister who regularly visits her; otherwise there is no history of tobacco. There is no history of recent tobacco or alcohol use. REVIEW OF SYSTEMS: As mentioned above, otherwise deferred as the patient is currently on BiPAP. PHYSICAL EXAMINATION: GENERAL: She is quite somnolent, but arousable, tolerating her BiPAP. VITAL SIGNS: Temperature is 100.2 degrees Fahrenheit, pulse is 110, respiratory rate is 30, blood pressure 130/69 mmHg, saturation 98%. HEENT: Normocephalic, atraumatic. NECK: Supple, without any lymphadenopathy or thyromegaly. CHEST: Breath sounds are decreased bilaterally. No obvious wheezes or rales. CARDIOVASCULAR: Heart sounds are distant. No obvious murmurs or gallop. BREASTS: Exam deferred. ABDOMEN: Obese, soft, nontender, no organomegaly or masses felt. GENITOURINARY: Deferred. RECTAL: Deferred. EXTREMITIES: No cyanosis, clubbing or edema. NEUROLOGIC: She is semi-somnolent, anxious at times and falls asleep quite easily. LABORATORY DATA: UA shows many bacteria. Electrolytes: Sodium 145, potassium , chloride 102, CO2 is greater than 45, BUN is 18, creatinine is 1.2. WBC 6400, hemoglobin is 10.4, there was no significant bandemia, arterial blood gas on admission revealed pH 7.27, pCO2 of 88, pO2 57 on 3 liters of O2. Albumin 2.9. IMPRESSION: 1. Acute on chronic hypercapnic hypoxic respiratory failure in this 61-year-old white female. Etiology is probably secondary to worsening hypoventilation related to altered mental status. 2. History of COPD/asthma with exacerbation. 3. RODRÍGUEZ/obesity hypoventilation syndrome. [facility] [address] [place] [address] CONSULTATION Name: JESSICA MÉNDEZ Room #: 462-P ADM IN M.R.#: [id number] Admission: 03/19/17 Attend Phys: Aleksandra Canales Discharge: Date of : 57 Report #: [id number] 4. Morbid obesity. 5. Chronic pain with chronic narcotic continues to be a difficult problem. 6. Febrile illness. We will presume UTI, may be exacerbating her mental status change. 7. Depression, anxiety disorder. 8. Hypertension, gastroesophageal reflux disease, diabetes mellitus. RECOMMENDATION: We will continue noninvasive positive pressure ventilation, keep saturation around 88-90% if possible to avoid paradoxical hypercarbia, agree with corticosteroids and bronchodilators and broad-spectrum antibiotics. If the patient does not tolerate BiPAP and deteriorates, she may eventually need intubation. Note that patient has a history of recurrent respiratory failure. If the frequency of respiratory failure increases, may need to consider tracheostomy as a possible option in this patient with recurrent respiratory failure. Thank you for this consultation. <ELECTRONICALLY SIGNED> By: Jose Griffiths MD 03/23/17 1350 [id number] Jose Griffiths MD /nt
[2017-03-19 12:17] LABS: URINE BLOOD NEGATIVE (Negative); URINE COLOR YELLOW; URINE GLUCOSE-RANDOM* NEGATIVE (Negative); URINE KETONES NEGATIVE (Negative); URINE LEUKOCYTES-REFLEX TRACE (Negative); URINE PROTEIN (DIPSTICK) 1+ (Negative); URINE SPECIFIC GRAVITY >= 1.030 (1.003-1.035)
[2017-03-19 12:20] LABS: ICTOTEST (BILI CONFIRMATORY) Negative (Negative); URINE BILIRUBIN NEGATIVE (Negative)
[2017-03-19 12:31] LABS: BASOPHILS 0.5 % (0.0-2.0); HEMATOCRIT 33.3 % (37.0-47.0); HEMOGLOBIN 10.4 gm/dL (12.0-15.0); LYMPHOCYTES 13.2 % (24.0-44.0); MCH 25.1 pg (26.0-34.0); MCHC 31.2 g/dL (28.0-37.0); MCV 80.3 fL (80.0-100.0); MONOCYTES 6.9 % (1.0-8.0); PLATELET COUNT 148 thou/uL (150-400); POLYS 77.4 % (36.0-66.0); RBC 4.14 mil/uL (4.20-5.00); RDW 15.1 % (10.5-14.5); WBC 6.4 thou/uL (4.0-11.0)
[2017-03-19 12:33] LABS: SQUAMOUS 4-10 Moderate /LPF (0-3)
[2017-03-19 12:34] LABS: CASTS None Seen /LPF (None Seen); CRYSTALS None Seen /LPF (None Seen); URINE RBC None Seen /HPF (0-2); URINE WBC-REFLEX 6-15 Few /HPF (0-5)
[2017-03-19 12:34] LABS: MANUAL DIFF NO
[2017-03-19 12:39] LABS: BUN 18 mg/dL (7-18); CALCIUM 8.4 mg/dL (8.5-10.1); CHLORIDE 102 mmol/L (98-107); CREATININE 1.2 mg/dL (0.6-1.0); GLUCOSE 117 mg/dL (74-106); POTASSIUM 4.3 mmol/L (3.5-5.1); SODIUM 145 mmol/L (136-145)
[2017-03-19 12:40] LABS: CO2 > 45 mmol/L (21-32)
[2017-03-19 13:20] LABS: ABG SAMPLE TYPE ARTERIAL; BE(vivo) 10.3 mmol/L (-2 to +3); HCO3 40.1 mmol/L (22.0-26.0); LACTATE 0.58 mmol/L (0.5-2.0); O2(CT) 14.2 mL/dL (15.0-23.0); PO2 57.6 mmHg (80.0-100.0); sO2 84.3 % (92.0-98.0); tCO2 42.9 mmol/L (24.0-30.0)
[2017-03-19 13:22] LABS: PCO2 88.8 mmHg (35.0-45.0); pH 7.273 (7.360-7.450)
[2017-03-19 13:23] LABS: STICK SITE R.RADIAL
[2017-03-19 14:42] LABS: ABG SAMPLE TYPE ARTERIAL; BE(vivo) 9.4 mmol/L (-2 to +3); HCO3 40.2 mmol/L (22.0-26.0); LACTATE 0.64 mmol/L (0.5-2.0); O2(CT) 15.1 mL/dL (15.0-23.0); O2Hb 96.4 % (92.0-98.0); PO2 104.9 mmHg (80.0-100.0); sO2 96.3 % (92.0-98.0); tCO2 43.2 mmol/L (24.0-30.0)
[2017-03-19 14:45] LABS: PCO2 100.4 mmHg (35.0-45.0)
[2017-03-19 14:46] LABS: Pressure Support 13 cm H20; STICK SITE R.RADIAL
[2017-03-19] MEDS ORDERED: TUMS PO (14:54)
[2017-03-19] MEDS ORDERED: GABAPENTIN 100100 MG PO (14:54)
[2017-03-19] MEDS ORDERED: LEVEMIR SUBQ (14:55)
[2017-03-19 16:53] LABS: ABG SAMPLE TYPE ARTERIAL; BE(vivo) 9.1 mmol/L (-2 to +3); HCO3 38.5 mmol/L (22.0-26.0); LACTATE 0.52 mmol/L (0.5-2.0); O2(CT) 14.8 mL/dL (15.0-23.0); O2Hb 93.3 % (92.0-98.0); PO2 75.5 mmHg (80.0-100.0); sO2 92.5 % (92.0-98.0); tCO2 41.1 mmol/L (24.0-30.0)
[2017-03-19 16:54] LABS: PCO2 84.2 mmHg (35.0-45.0); Pressure Support 20 cm H20; STICK SITE R.RADIAL; pH 7.278 (7.360-7.450)
[2017-03-20] VITALS (37 sets, daily range): BP systolic 44–180; BP diastolic 31–152
[2017-03-20 04:37] LABS: HEMATOCRIT 34.6 % (37.0-47.0); HEMOGLOBIN 10.8 gm/dL (12.0-15.0); MCH 24.9 pg (26.0-34.0); MCHC 31.2 g/dL (28.0-37.0); MCV 79.8 fL (80.0-100.0); RBC 4.34 mil/uL (4.20-5.00); RDW 14.8 % (10.5-14.5); WBC 3.3 thou/uL (4.0-11.0)
[2017-03-20 04:45] LABS: CALCIUM 8.5 mg/dL (8.5-10.1); CREATININE 0.6 mg/dL (0.6-1.0); POTASSIUM 4.6 mmol/L (3.5-5.1)
[2017-03-20 04:50] LABS: ALBUMIN 2.9 g/dL (3.4-5.0); TOTAL BILIRUBIN 0.4 mg/dL (<0.1-1.0); TOTAL PROTEIN 6.4 g/dL (6.4-8.2)
[2017-03-20 05:31] LABS: ABG SAMPLE TYPE ARTERIAL; BE(vivo) 7.7 mmol/L (-2 to +3); HCO3 35.6 mmol/L (22.0-26.0); LACTATE 0.76 mmol/L (0.5-2.0); O2(CT) 14.8 mL/dL (15.0-23.0); O2Hb 94.8 % (92.0-98.0); PO2 82.7 mmHg (80.0-100.0); tCO2 37.8 mmol/L (24.0-30.0)
[2017-03-20 05:32] LABS: PCO2 69.9 mmHg (35.0-45.0); Pressure Support 16 cm H20; STICK SITE L.RADIAL; pH 7.325 (7.360-7.450)
[2017-03-21] VITALS (11 sets, daily range): BP systolic 139–170; BP diastolic 67–99
[2017-03-21 05:35] LABS: ABG SAMPLE TYPE ARTERIAL; BE(vivo) 8.2 mmol/L (-2 to +3); HCO3 34.6 mmol/L (22.0-26.0); LACTATE 0.92 mmol/L (0.5-2.0); O2(CT) 15.4 mL/dL (15.0-23.0); O2Hb 95.6 % (92.0-98.0); PCO2 57.5 mmHg (35.0-45.0); PO2 91.5 mmHg (80.0-100.0); STICK SITE R.BRACHIAL; pH 7.397 (7.360-7.450); sO2 96.8 % (92.0-98.0); tCO2 36.3 mmol/L (24.0-30.0)
[2017-03-21 05:36] LABS: ABG COMMENT BIPAP 18/6; Pressure Support 12 cm H20
[2017-03-21 06:17] LABS: HEMATOCRIT 31.8 % (37.0-47.0); HEMOGLOBIN 10.3 gm/dL (12.0-15.0); MCH 25.1 pg (26.0-34.0); MCHC 32.3 g/dL (28.0-37.0); MCV 77.8 fL (80.0-100.0); RBC 4.09 mil/uL (4.20-5.00); RDW 14.6 % (10.5-14.5); WBC 3.9 thou/uL (4.0-11.0)
[2017-03-21 06:26] LABS: CALCIUM 8.7 mg/dL (8.5-10.1); CREATININE 0.6 mg/dL (0.6-1.0); POTASSIUM 4.3 mmol/L (3.5-5.1)
[2017-03-22] VITALS (17 sets, daily range): BP systolic 145–180; BP diastolic 70–149
[2017-03-22 04:47] LABS: HEMATOCRIT 36.8 % (37.0-47.0); HEMOGLOBIN 12.1 gm/dL (12.0-15.0); MCHC 32.9 g/dL (28.0-37.0); MCV 76.1 fL (80.0-100.0); RBC 4.83 mil/uL (4.20-5.00); RDW 14.6 % (10.5-14.5); WBC 3.7 thou/uL (4.0-11.0)
[2017-03-22 04:56] LABS: CALCIUM 9.5 mg/dL (8.5-10.1); CREATININE 0.7 mg/dL (0.6-1.0); POTASSIUM 3.9 mmol/L (3.5-5.1)
[2017-03-22 05:06] LABS: ABG SAMPLE TYPE ARTERIAL; BE(vivo) 12.8 mmol/L (-2 to +3); HCO3 38.6 mmol/L (22.0-26.0); LACTATE 1.05 mmol/L (0.5-2.0); O2(CT) 18.1 mL/dL (15.0-23.0); O2Hb 95.7 % (92.0-98.0); PCO2 53.9 mmHg (35.0-45.0); Pressure Support 18 cm H20; STICK SITE L.RADIAL; pH 7.473 (7.360-7.450); sO2 96.8 % (92.0-98.0); tCO2 40.3 mmol/L (24.0-30.0)
[2017-03-23 05:04] VITALS: BP 170/106
[2017-03-23 06:24] LABS: ALBUMIN 3.6 g/dL (3.4-5.0); ANION GAP 2 mmol/L (7-16); BUN 29 mg/dL (7-18); CALCIUM 9.4 mg/dL (8.5-10.1); CHLORIDE 95 mmol/L (98-107); CO2 39 mmol/L (21-32); CREATININE 0.6 mg/dL (0.6-1.0); GLUCOSE 262 mg/dL (74-106); MAGNESIUM 1.9 mg/dL (1.8-2.4); POTASSIUM 3.5 mmol/L (3.5-5.1); SODIUM 136 mmol/L (136-145); TROPONIN-I < 0.04 ng/mL (<0.04-0.07)
[2017-03-23 07:28] VITALS: BP 162/102
[2017-03-23 12:36] VITALS: BP 126/79
[2017-03-23 16:09] VITALS: BP 129/84
[2017-03-23 21:44] VITALS: BP 96/53
[2017-03-24 08:35] VITALS: BP 147/97
[2017-03-24 11:37] VITALS: BP 133/80
[2017-03-24] MEDS ORDERED: FENTANYL PA25 MCG/HR TRANSDERM (12:48)
[2017-03-24] MEDS ORDERED: CARDIZEM CD 18180 M3 PO (12:48)
[2017-03-24] MEDS ORDERED: CARVEDILOL6.25 MG PO (12:48)
[2017-03-24] MEDS ORDERED: HUMALOG100 UNIT/1 SUBQ (12:49)
[2017-03-24] MEDS ORDERED: LASIX 40 MG TAB40 M1 PO (12:49)
[2017-03-24] MEDS ORDERED: LANTUS100 UNIT/M SUBQ (12:49)
[2017-03-24] MEDS ORDERED: PREDNISONE 20 M20 MG PO (12:50)
[2017-03-24] MEDS ORDERED: ROCEPHIN 11 GM/1001 IV (12:52)
[2017-03-24 16:32] VITALS: BP 126/67
== END 2017-03-24 18:20 | DRG 871 ==
LOC: ER 11:48 → EROBS 14:31 → ICU 14:31 → 4W 03-22 17:05
PROVIDERS: Emergency Medicine; Hospitalist; Internal Medicine Pulmonary Disease
PROC: 5A09557 Assistance with Respiratory Ventilation, Greater than 96 Consecutive Hours, Continuous Positive Airway Pressure (ICD-10-PCS; principal; 2017-03-19)
DX: A41.9 Sepsis, unspecified organism (principal); J96.22 Acute and chronic respiratory failure with hypercapnia; J96.21 Acute and chronic respiratory failure with hypoxia; G93.40 Encephalopathy, unspecified; N39.0 Urinary tract infection, site not specified; E66.2 Morbid (severe) obesity with alveolar hypoventilation; N17.9 Acute kidney failure, unspecified; J45.901 Unspecified asthma with (acute) exacerbation; J44.1 Chronic obstructive pulmonary disease with (acute) exacerbation; Z68.41 Body mass index [BMI] 40.0-44.9, adult; F32.9 Major depressive disorder, single episode, unspecified; F41.9 Anxiety disorder, unspecified; K21.9 Gastro-esophageal reflux disease without esophagitis; K59.00 Constipation, unspecified; M19.90 Unspecified osteoarthritis, unspecified site; I50.9 Heart failure, unspecified; I11.0 Hypertensive heart disease with heart failure; E11.9 Type 2 diabetes mellitus without complications; G89.29 Other chronic pain; G47.00 Insomnia, unspecified; D50.9 Iron deficiency anemia, unspecified; R41.3 Other amnesia; Z79.891 Long term (current) use of opiate analgesic; Z90.49 Acquired absence of other specified parts of digestive tract; Z90.710 Acquired absence of both cervix and uterus; Z79.899 Other long term (current) drug therapy; Z88.6 Allergy status to analgesic agent; Z88.0 Allergy status to penicillin; Z91.041 Radiographic dye allergy status; Z87.891 Personal history of nicotine dependence; Z82.5 Family history of asthma and other chronic lower respiratory diseases; Z80.0 Family history of malignant neoplasm of digestive organs
CPT/HCPCS: 10045; 10078

== ENCOUNTER 2017-05-19 16:12 | Inpatient (IN) | payer OTHER | END 2017-06-03 21:27 | DRG 3 | LOC: ER 16:12 → EROBS 17:20 → ICU 18:58 | PROC: 0B110F4 Bypass Trachea to Cutaneous with Tracheostomy Device, Open Approach (ICD-10-PCS; principal; 2017-05-19) | PROC: 5A1955Z Respiratory Ventilation, Greater than 96 Consecutive Hours (ICD-10-PCS; principal; 2017-05-19) | PROC: 0BH17EZ Insertion of Endotracheal Airway into Trachea, Via Natural or Artificial Opening (ICD-10-PCS; 2017-05-19) | PROC: 02HV33Z Insertion of Infusion Device into Superior Vena Cava, Percutaneous Approach (ICD-10-PCS; 2017-05-19) | PROC: 0DH63UZ Insertion of Feeding Device into Stomach, Percutaneous Approach (ICD-10-PCS; 2017-05-21) | PROC: 02HV33Z Insertion of Infusion Device into Superior Vena Cava, Percutaneous Approach (ICD-10-PCS; 2017-05-25) | PROC: 0WQF0ZZ Repair Abdominal Wall, Open Approach (ICD-10-PCS; 2017-05-27) | PROC: 0JB80ZZ Excision of Abdomen Subcutaneous Tissue and Fascia, Open Approach (ICD-10-PCS; 2017-05-27) | PROC: 0WUF4JZ Supplement Abdominal Wall with Synthetic Substitute, Percutaneous Endoscopic Approach (ICD-10-PCS; 2017-05-27) | PROC: 0D9670Z Drainage of Stomach with Drainage Device, Via Natural or Artificial Opening (ICD-10-PCS; 2017-05-31) | DX: A41.9 Sepsis, unspecified organism (principal); J69.0 Pneumonitis due to inhalation of food and vomit; J96.21 Acute and chronic respiratory failure with hypoxia; J96.22 Acute and chronic respiratory failure with hypercapnia; G93.40 Encephalopathy, unspecified; N17.9 Acute kidney failure, unspecified; E87.0 Hyperosmolality and hypernatremia; E44.0 Moderate protein-calorie malnutrition; D61.818 Other pancytopenia; K43.0 Incisional hernia with obstruction, without gangrene; N39.0 Urinary tract infection, site not specified; A04.7 Enterocolitis due to Clostridium difficile; J93.9 Pneumothorax, unspecified; G93.1 Anoxic brain damage, not elsewhere classified; J44.1 Chronic obstructive pulmonary disease with (acute) exacerbation; Z68.42 Body mass index [BMI] 45.0-49.9, adult; Z66 Do not resuscitate; E83.42 Hypomagnesemia; G89.4 Chronic pain syndrome; E11.9 Type 2 diabetes mellitus without complications; E66.01 Morbid (severe) obesity due to excess calories; R16.1 Splenomegaly, not elsewhere classified; B19.20 Unspecified viral hepatitis C without hepatic coma; K21.9 Gastro-esophageal reflux disease without esophagitis; I11.0 Hypertensive heart disease with heart failure; I50.9 Heart failure, unspecified; D50.9 Iron deficiency anemia, unspecified; F32.9 Major depressive disorder, single episode, unspecified; F41.9 Anxiety disorder, unspecified; Z86.74 Personal history of sudden cardiac arrest; Z86.73 Personal history of transient ischemic attack (TIA), and cerebral infarction without residual deficits; Z51.5 Encounter for palliative care ==